=== PATIENT | female | born 1980 | race Native Hawaiian/Other Pacific Islander ===

== ENCOUNTER 2016-05-16 19:36 | Emergency (ER) | payer OTHER ==
[2016-05-16 20:49] VITALS: BP 129/77
[2016-05-16 21:20] LABS: Basophils % (Auto) 1.5 % (0.0-1.8); Eosinophils % (Auto) 1.3 % (0.0-4.3); Hematocrit 43.3 % (30.3-42.9); Hemoglobin 14.6 gm/dl (10.1-14.3); Mean Corpuscular HGB Conc 34 % (30-34); Mean Corpuscular Hemoglobin 29 pg (28-32); Mean Corpuscular Volume 85 fl (79-97); Platelet Count 340 K/mm3 (140-440); Red Blood Count 5.12 M/mm3 (3.65-5.03); Red Cell Distribution Width 13.6 % (13.2-15.2); White Blood Count 10.1 K/mm3 (4.5-11.0)
[2016-05-16 21:35] LABS: Alanine Aminotransferase 19 units/L (7-56); Albumin 3.8 g/dL (3.9-5); Albumin/Globulin Ratio 1.2 %; Alkaline Phosphatase 80 units/L (35-129); Anion Gap 18 mmol/L; Bilirubin,Total 0.2 mg/dL (0.1-1.2); Blood Urea Nitrogen 12 mg/dL (7-17); Calcium 8.9 mg/dL (8.4-10.2); Carbon Dioxide 23 mmol/L (22-30); Chloride 96.4 mmol/L (98-107); Glucose 191 mg/dL (65-100); Sodium 133 mmol/L (137-145)
[2016-05-16 22:41] LABS: Lipase 28 units/L (13-60)
[2016-05-17 00:16] LABS: Bilirubin,Urine NEG (Negative); Blood,Urine NEG (Negative); Ketones,Urine 20 mg/dL (Negative); Leukocyte Esterase,Urine TR (Negative); Mucus,Urine FEW /HPF; Nitrite,Urine NEG (Negative); Protein,Urine <15 mg/dL mg/dL (Negative); Urobilinogen,Urine < 2.0 mg/dL (<2.0)
--- NOTE | 2016-05-21 01:13 | ED Elopement Review ---
ED Pt Elopement review - Results review Lab results: Laboratory Tests 05/16/16 05/16/16 05/16/16 21:05 21:05 21:05 WBC 10.1 RBC 5.12 H Hgb 14.6 H Hct 43.3 H MCV 85 MCH 29 MCHC 34 RDW 13.6 Plt Count 340 Lymph % (Auto) 35.8 H [place] % (Auto) 6.3 Eos % (Auto) 1.3 Baso % (Auto) 1.5 Lymph # 3.6 [place] # 0.6 Eos # 0.1 Baso # 0.1 Seg Neutrophils % 55.1 Seg Neutrophils # 5.5 Sodium 133 L Potassium 4.0 Chloride 96.4 L Carbon Dioxide 23 Anion Gap 18 BUN 12 Creatinine 0.6 L Estimated GFR > 60 BUN/Creatinine Ratio 20.00 Glucose 191 H Calcium 8.9 Total Bilirubin 0.2 AST 14 ALT 19 Alkaline Phosphatase 80 Total Protein 7.0 Albumin 3.8 L Albumin/Globulin Ratio 1.2 Lipase 28 HCG, Qual Positive HCG, Quant Urine Color Urine Turbidity Urine pH Ur Specific [place] Urine Protein Urine Glucose (UA) Urine Ketones Urine Blood Urine Nitrite Urine Bilirubin Urine Urobilinogen Ur Leukocyte Esterase Urine WBC (Auto) Urine RBC (Auto) U Epithel Cells (Auto) Urine Mucus 05/16/16 05/16/16 21:05 23:30 WBC RBC Hgb Hct MCV MCH MCHC RDW Plt Count Lymph % (Auto) [place] % (Auto) Eos % (Auto) Baso % (Auto) Lymph # [place] # Eos # Baso # Seg Neutrophils % Seg Neutrophils # Sodium Potassium Chloride Carbon Dioxide Anion Gap BUN Creatinine Estimated GFR BUN/Creatinine Ratio Glucose Calcium Total Bilirubin AST ALT Alkaline Phosphatase Total Protein Albumin Albumin/Globulin Ratio Lipase HCG, Qual HCG, Quant 878.1 H Urine Color Straw Urine Turbidity Clear Urine pH 5.0 Ur Specific [place] 1.011 Urine Protein <15 mg/dl Urine Glucose (UA) >=500 Urine Ketones 20 Urine Blood Neg Urine Nitrite Neg Urine Bilirubin Neg Urine Urobilinogen < 2.0 Ur Leukocyte Esterase Tr Urine WBC (Auto) 3.0 Urine RBC (Auto) 1.0 U Epithel Cells (Auto) 2.0 Urine Mucus Few - Call Back decision Pt Call Back Decision: Pt to F/U with PMD (+ , needs further eval by gynaecological oncologist, may return to ED if sx continue)
== END 2016-05-17 | disposition left against medical advice (07) ==
LOC: ED 19:36
DX: R10.2 Pelvic and perineal pain (principal); Z53.21 Procedure and treatment not carried out due to patient leaving prior to being seen by health care provider
CPT/HCPCS: 36415; 80053; 81001; 83690; 84702; 84703; 85025

== ENCOUNTER 2016-07-07 10:40 | Outpatient (CLI) | payer OTHER ==
--- NOTE | 2016-07-07 12:15 | Ultrasound Report ---
ULTRASOUND OB LESS THAN 14 WEEKS - TRANSABDOMINAL AND TRANSVAGINAL INDICATION: Left pelvic pain. Possible ectopic . Serum beta-hCG of 104 units. COMPARISON: None similar. FINDINGS: Transabdominal and transvaginal pelvic sonography performed in this patient with LMP of 05/22/2016 and estimated menstrual age of 6 weeks and 4 days. An anteverted uterus measuring approximately 12.5 x 5.2 x 5.9 cm demonstrates a 1.2 x 0.9 cm cystic focus along the endometrium inferiorly as on endovaginal image 5 without intrinsic pole or yolk sac identified. Few nabothian cysts noted measuring up to approximately 8 mm. No significant free fluid in the posterior cul-de-sac, though minimal left adnexal/paraovarian fluid may be present. Left adnexa/ovary estimated at 4.2 x 6.2 x 3.9 cm, though includes a peripheral/adjacent 4.2 x 3.6 x 3.6 cm echogenic, non-hypervascular mass as on endovaginal images 26-27. Left ovarian blood flow noted. Right ovary approximately 5 x 2.7 x 4.6 cm. CONCLUSION: 1. No sonographic evidence of a viable intrauterine gestation at this time with possible empty gestational sac and a left adnexal ectopic , as described. 2. Few other findings, as above. Please also correlate clinically, with serial serum beta-hCG values and/or followup sonogram, as warranted. I phoned the above results to Dr. George, 12 PM, 07/07/2016. Thank you for the opportunity to participate in this patient's care.
== END 2016-07-07 10:41 | disposition home or self-care (01) ==
LOC: US 10:40
PROVIDERS: ATTEND Obstetrics & Gynecology
DX: O34.591 Maternal care for other abnormalities of gravid uterus, first trimester (principal); O34.81 Maternal care for other abnormalities of pelvic organs, first trimester; N94.89 Other specified conditions associated with female genital organs and menstrual cycle; O26.891 Other specified pregnancy related conditions, first trimester; R10.2 Pelvic and perineal pain; Z3A.01 Less than 8 weeks gestation of pregnancy
CPT/HCPCS: 76801; 76817

== ENCOUNTER 2016-07-10 11:34 | Day surgery (SDC) | payer OTHER ==
--- NOTE | 2016-07-10 12:18 | Anesthesia Consultation ---
Anesthesia Consult and Med Hx Date of service: 07/10/16 - Airway Anesthetic Teeth Evaluation: Good ROM Head & Neck: Adequate Mental/Hyoid Distance: Adequate Mallampati Class: Class II Intubation Access Assessment: Probably Good - Pulmonary Exam CTA: Yes - Cardiac Exam Cardiac Exam: RRR - Pre-Operative Health Status ASA Pre-Surgery Classification: ASA1 Proposed Anesthetic Plan: General - Central Nervous System Hx Psychiatric Problems: No - Other Systems Hx Cancer: No
--- NOTE | 2016-07-10 12:18 | Anesthesia Day of Surgery ---
Anesthesia Day of Surgery - Day of Surgery Patient Examined: Yes Patient H&P Reviewed: Yes Patient is NPO: Yes
--- NOTE | 2016-07-10 12:23 | Short Stay Summary ---
Short Stay Documentation Date of service: 07/10/16 Narrative H&P: 35y/o @ 6 weeks ega by lmp with findings of an abnormal gestation. Her HCG levels have been falling. The patient complains of left sided pelvic pain. Ultrasound demonstrates a left adnexal cyst 4.2cm. She also has a fluid collection in the lower uterine segment. She denies any vaginal bleeding or passage of tissue. She has not had significant improvement in her pain. - History Principal diagnosis: Abnormal gestation. Pelvic pain H&P: obtained from office Past Medical History: diabetes, hyperlipidemia Past Surgical History: cholecystectomy Social history: - Allergies and Medications Current Medications: Allergies No Known Allergies Allergy (Verified 07/08/16 17:04) Home Medications Medication Instructions Recorded Confirmed Last Taken Type Ibuprofen [Motrin] 400 mg PO Q8H PRN 07/08/16 07/08/16 Unknown History Active Medications Famotidine (Pepcid) 20 mg PO PREOP NR Lactated Ringer's (Lactated Ringers) 1,000 mls @ 100 mls/hr IV DIRECT MICHELLE Midazolam HCl (Versed) 2 mg IV PREOP NR Stop: 07/10/16 23:59 Scopolamine (Transderm-Scop) 1 each TD PREOP NR - Physical exam General appearance: no acute distress HEENT: Atraumatic Lungs: Clear to auscultation Breasts: deferred Heart: Regular rate Gastrointestinal: tenderness Female Genitourinary: deferred Rectal Exam: deferred - Brief post op/procedure progress note Date of procedure: 07/10/16 Pre-op diagnosis: pelvic pain Post-op diagnosis: same (left ectopic ) Procedure: Laparoscopy Evacuation of left ectopic Suction dilatation and curettage Anesthesia: JANETTA Surgeon: JOSEP GUAN Estimated blood loss: 50-100ml Pathology: list (products of conception; endometrial curettings) Specimen disposition: to lab Condition: stable - Hospital course Hospital course: The patient was admitted the day of surgery underwent a laparoscopy for pelvic pain with findings of an aborted left ectopic coming out the end of the left fallopian tube. Please see operative note for full details of the surgery. Postoperative course was uneventful. - Disposition Condition at discharge: Good Disposition: DISCHARGED TO HOME OR SELFCARE Short Stay Discharge Plan Activity: other (pelvic rest for 1 week) Diet: regular Additional Instructions: Follow-up with Dr. Guan on Thursday or Thursday of next week patient should call for an appointment. Prescriptions: Ibuprofen [Motrin] 800 mg PO Q8HR PRN #60 tablet PRN Reason: Pain Oxycodone HCl/Acetaminophen [Percocet 7.5/325 mg] 1 each PO Q6HR PRN #30 tablet PRN Reason: Pain
[2016-07-10] MEDS ORDERED: DIPRIVAN 10 MG/ML IV ONE (12:24)
[2016-07-10] MEDS ORDERED: DILAUDID ONE (12:25)
[2016-07-10] MEDS ORDERED: MARCAINE 0.5% 30 ML INFILTRATI ONE (12:43)
[2016-07-10] MEDS ORDERED: METHERGINE IM ONE (12:44)
[2016-07-10] MEDS ORDERED: SILVER NITRATE TP ONE ×2 (12:44→14:20)
[2016-07-10] MEDS ORDERED: TRANSDERM-SCOP TD NR (13:00)
[2016-07-10] MEDS ORDERED: LACTATED RINGERS 1,000 ML IV SCH (13:00)
[2016-07-10] MEDS ORDERED: VERSED IV NR (13:00)
[2016-07-10] MEDS ORDERED: PEPCID PO NR (13:00)
[2016-07-10] MEDS ORDERED: ROBINUL ONE (13:23)
[2016-07-10] MEDS ORDERED: ZEMURON IV ONE (13:23)
[2016-07-10] MEDS ORDERED: NEOSTIGMINE ONE (13:23)
[2016-07-10] MEDS ORDERED: XYLOCAINE MPF 2% ONE (13:23)
[2016-07-10] MEDS ORDERED: DECADRON ONE (13:24)
[2016-07-10] MEDS ORDERED: ZOFRAN ONE (13:24)
[2016-07-10] MEDS ORDERED: MARCAINE 0.5% INFILTRATI ONE ×2 (13:46)
[2016-07-10] MEDS ORDERED: NACL 0.9% IR ONE ×2 (13:46)
--- NOTE | 2016-07-10 14:33 | Operative Report ---
Operative Report Operative Report: Date of surgery: 07/10/2016 Preoperative diagnosis: Pelvic Pain Postoperative diagnosis: Aborted left ectopic Procedure: Laparoscopy; evacuation of left ectopic ; suction dilatation and curettage Surgeon: Amy George M.D. Anesthesia: General endotracheal anesthesia Estimated blood loss: Less than 50 mL Findings: Organized clot involving the left adnexa; aborted left ectopic being expelled from the fimbria of the fallopian tube Indication: 35-year-old 011 at 6 weeks estimated gestational age who presents with persistent left lower quadrant pain. The patient had findings of a suspected gestational sac in the lower uterine segment and also findings of a complex left adnexal mass. An ectopic could not be definitively declared on the ultrasound. Procedure: The patient was taken to the operating room and given general endotracheal anesthesia without complication. The patient is prepped and draped in a normal sterile fashion. A bivalve speculum was placed in the patient's vagina and a single-tooth tenaculum was placed on the anterior lip of the cervix .A uterine acorn manipulator was placed, and the bivalve speculum was then removed. Attention was then turned to the patient's abdomen where a 5 mm infraumbilical skin incision was then made. A Veress needle was placed and peritoneal entry was verified water-filled syringe. Insufflation of the peritoneal cavity was performed with CO2 gas. A 5 mm trocar was placed and the laparoscope was then inserted. The patient was then placed in Trendelenburg. A 5 mm suprapubic skin incision was then made. Under direct visualization a 5 mm trocar was then placed. General survey of the patient's abdomen revealed organize clot involving the left adnexa. The left fallopian tube appeared to be intact with evidence of products of conception coming from the fimbriated end of the tube. Blood was collected in the posterior cul-de- sac. The organized clot was evacuated with the suction irrigation. The suprapubic trocar site was converted to a 10 mm site in order to facilitate removal of the products of conception. The products of conception were gently extruded from the fallopian tube and removed with a grasper. There was no active bleeding at the conclusion of the case. Copious irrigation of the surgical site was performed. Josue was applied to the fallopian tube. The 10 mm trocar site was then removed. The fascia of the 10 mm site was closed with 0 Vicryl. The pneumoperitoneum was then released and the 5 mm laparoscope and trocar were removed. The skin incisions were then closed with 4-0 Monocryl. The incisions were injected with quarter percent Marcaine. Dressings were applied to the incision. A bivalve speculum was then placed in the patient's vagina. The uterine manipulator was then removed. Dilatation of the cervical os was performed with graduated dilators. A 7 [place] curved cannula was placed to suction and found to be adequate. Evacuation of the uterine contents were performed. Sharp curettage of the endometrial surface was performed until cry was achieved. The vaginal instruments were then removed atraumatically. The patient was successfully extubated and taken to the recovery room. All sponge laps and needle counts were correct 2.
[2016-07-10] MEDS: DILAUDID IV PRN ×2 (15:23→15:45)
[2016-07-10 18:03] VITALS: BP 128/60
== END 2016-07-10 16:50 | disposition home or self-care (01) ==
LOC: OR 11:34
PROVIDERS: ATTEND Obstetrics & Gynecology
DX: O00.90 Unspecified ectopic pregnancy without intrauterine pregnancy (principal); E11.9 Type 2 diabetes mellitus without complications; E78.5 Hyperlipidemia, unspecified; Z90.49 Acquired absence of other specified parts of digestive tract; Z79.899 Other long term (current) drug therapy
CPT/HCPCS: 59150; 81025; 88305; A4217; J1100; J1170; J2250; J2405; J2704; J2710; J7120; J2210